=== PATIENT | female | born 1980 | race Caucasian/White ===

== ENCOUNTER 2024-01-24 16:30 | Outpatient (CLI) | payer OTHER | END 2024-01-24 18:38 | disposition home or self-care (01) | LOC: NST 16:30 | PROVIDERS: ATTEND Obstetrics & Gynecology | DX: Z34.82 Encounter for supervision of other normal pregnancy, second trimester (principal) ==

== ENCOUNTER 2024-02-27 16:11 | Outpatient (CLI) | payer OTHER | END 2024-02-27 17:14 | disposition home or self-care (01) | LOC: NST 16:11 | PROVIDERS: ATTEND Obstetrics & Gynecology Maternal & Fetal Medicine | DX: Z34.83 Encounter for supervision of other normal pregnancy, third trimester (principal) ==

== ENCOUNTER 2024-04-10 08:15 | Inpatient (IN) | payer OTHER ==
[~2024-04-10] VITALS: Ht 154.9 cm; Wt 73.5 kg
[2024-04-19 09:00] VITALS: BP 120/80
[2024-04-19] MEDS ORDERED: PRENATAL TABLE1 EAC1 PO (09:07)
[2024-04-19] MEDS ORDERED: RINGERS SOLUTION,LACTATED 1,000 ML IV SCH (09:45)
[2024-04-19] MEDS ORDERED: CITRIC ACID/SODIUM CITRATE 30 ML BLIST.PACK PO SCH (09:45)
[2024-04-19] MEDS ORDERED: CEFAZOLIN SODIUM 1,000 MG VIAL IV SCH (09:45)
[2024-04-19] MEDS ORDERED: CITRIC ACID/SODIUM CITRATE 30 ML BLIST.PACK PO ONE (09:49)
[2024-04-19] MEDS ORDERED: OXYTOCIN 10 UNITS/ML VIAL ONE (09:51)
[2024-04-19 09:57] LABS: HEMATOCRIT 39.8 % (36.0-45.00); HEMOGLOBIN 13.5 g/dL (12.0-15.00); MEAN CELL VOLUME 84.1 fL (80.00-100.00); MEAN CORPUSCULAR HEMOGLOBIN 28.6 pg (27.00-32.0); PLATELET COUNT 168 K/uL (150-450); RED BLOOD COUNT 4.73 M/uL (4.00-6.00); RED CELL DISTRIBUTION WIDTH 15.3 % (11.5-14.5)
[2024-04-19 10:15] LABS: INR < 0.93; PARTIAL THROMBOPLASTIN TIME 28.5 SECONDS (22.0-34.0); PROTHROMBIN TIME 9.9 SECONDS (9.0-11.5)
[2024-04-19 10:49] LABS: ALBUMIN 3.1 gm/dL (3.4-5.0); BILIRUBIN TOTAL 0.33 mg/dL (0.3-1.2); CALCIUM 9.3 mg/dL (8.5-10.1); CREATININE SERUM 0.43 mg/dL (0.55-1.02); GFR 161.81; GLOBULINA 3.7 G/DL (2.4-3.5); POTASSIUM 4.04 mEq/L (3.5-5.1); TOTAL PROTEIN 6.8 gm/dL (6.4-8.2)
[2024-04-19] MEDS ORDERED: OXYTOCIN 20 UNITS/1000ML RL PIGGYBAG IV ONE (12:30)
[2024-04-19] MEDS ORDERED: ERYTHROMYCIN BASE OPHT 1GM EACH TUBE OP ONE (12:30)
[2024-04-19] MEDS ORDERED: MORPHINE SULFATE 4 MG/ML VIAL IV ONE (12:55)
[2024-04-19 15:31] VITALS: BP 98/68
[2024-04-19] MEDS ORDERED: MORPHINE SULFATE 4 MG/ML CARTRIDGE IV PRN (16:45)
[2024-04-20 00:34] VITALS: BP 108/67
[2024-04-20 04:00] VITALS: BP 106/68
[2024-04-20 08:08] VITALS: BP 177/71
[2024-04-20 11:55] LABS: HEMATOCRIT 34.5 % (36.0-45.00); HEMOGLOBIN 11.7 g/dL (12.0-15.00); MEAN CELL VOLUME 84.4 fL (80.00-100.00); MEAN CORPUSCULAR HEMOGLOBIN 28.7 pg (27.00-32.0); PLATELET COUNT 175 K/uL (150-450); RED BLOOD COUNT 4.09 M/uL (4.00-6.00); RED CELL DISTRIBUTION WIDTH 15.4 % (11.5-14.5)
[2024-04-20 15:57] VITALS: BP 115/68
[2024-04-21 01:12] VITALS: BP 92/60
[2024-04-21] MEDS ORDERED: OxyCODONE HCL 5 MG TABLET (ROXICODONE) PO PRN (06:00)
[2024-04-21 07:53] VITALS: BP 100/63
[2024-04-21] MEDS ORDERED: IBUprofen 400 MG TABLET PO SCH (09:00)
[2024-04-21] MEDS ORDERED: FF) RHO(D) IMMUNE GLOBULIN (POM) IM ONE (10:00)
[2024-04-21 16:00] VITALS: BP 104/69
[2024-04-21] MEDS ORDERED: BISACODYL 10 MG/SUPP.RECT SUPP.RECT RECTAL SCH (16:00)
[2024-04-22 00:15] VITALS: BP 102/68
[2024-04-22] MEDS ORDERED: DIPHENHYDRAMINE HCL 25 MG CAPSULE PO SCH (00:24)
[2024-04-22 08:23] VITALS: BP 107/73
[2024-04-22] MEDS ORDERED: PERCOCET 5-3251 EACH PO (10:24)
[2024-04-22] MEDS ORDERED: KETO10TA2 PO (10:25)
== END 2024-04-22 14:15 | disposition home or self-care (01) | DRG 788 ==
LOC: LDR 04-19 08:26 → O/R 04-19 10:50 → OB/GYN 04-19 12:23 → LDR 04-24 08:30
PROVIDERS: Obstetrics & Gynecology; ADMIT Obstetrics & Gynecology Maternal & Fetal Medicine; ATTEND Obstetrics & Gynecology Maternal & Fetal Medicine
PROC: 4A1HXCZ Monitoring of Products of Conception, Cardiac Rate, External Approach (ICD-10-PCS; 2024-04-19)
PROC: 10D00Z1 Extraction of Products of Conception, Low, Open Approach (ICD-10-PCS; principal; 2024-04-19 10:00)
DX: O36.63X0 Maternal care for excessive fetal growth, third trimester, not applicable or unspecified (principal); O32.1XX0 Maternal care for breech presentation, not applicable or unspecified; Z3A.39 39 weeks gestation of pregnancy; Z37.0 Single live birth; Z20.822 Contact with and (suspected) exposure to COVID-19

== ENCOUNTER 2024-04-10 10:53 | Outpatient (CLI) | payer OTHER | END 2024-04-10 11:42 | disposition home or self-care (01) | LOC: NST 10:53 | PROVIDERS: ATTEND Obstetrics & Gynecology Maternal & Fetal Medicine | DX: Z34.83 Encounter for supervision of other normal pregnancy, third trimester (principal) ==